=== PATIENT | female | born 1945 | race Hispanic/Latino ===

== ENCOUNTER 2018-09-04 07:47 | Day surgery (SDC) | payer MEDICARE ==
[2018-09-02 17:57] VITALS: BMI 29.0
[2018-09-04 08:28] LABS: BASO # 0.02 K/mm3 (0.0-2.0); BASO % 0.4 % (0.0-3.0); EOS # 0.1 (0.0-0.7); EOS % 1.9 % (1.5-5.0); LYMPH # 1.9 (1.2-3.4); LYMPH % 40.3 % (22.0-35.0); MEAN CELL VOLUME 86.5 fl (80.0-105.0); MEAN CORPUSCULAR HEMOGLOBIN 29.2 pg (25.0-35.0); MEAN CORPUSCULAR HGB CONC 33.7 g/dl (31.0-37.0); MONO # 0.4 (0.1-0.6); MONO % 7.5 % (1.0-6.0); RBC 4.8 10^6/uL (3.5-6.1); RED CELL DISTRIBUTION WIDTH 12.9 % (11.5-14.5); WHITE BLOOD COUNT 4.7 10^3/uL (4.5-11.0)
[2018-09-04 08:36] LABS: BLOOD UREA NITROGEN 13 mg/dL (7-21); CALCIUM 9.5 mg/dL (8.4-10.5); GFR NON-AFRICAN AMERICAN > 60; HDL CHOLESTEROL 41 mg/dL (29-60); INR 1.12; PARTIAL THROMBOPLASTIN TIME 40.7 Seconds (26.9-38.3); PROTHROMBIN TIME 12.7 SECONDS (9.4-12.5)
[2018-09-04 08:47] LABS: LDL CHOLESTEROL 117 mg/dL (0-129)
--- NOTE | 2018-09-04 09:44 | CARD ---
APPROVED REPORT Date of service: 09/04/2018 EKG Measurement Heart [id number] <Conclusion> Nonspecific ST-T abnormalities Borderline ECG
[2018-09-04] MEDS ORDERED: Iodixanol 320 MG/ML 200 ML BOTTLE IV ONE (11:44)
[2018-09-04] MEDS ORDERED: Lidocaine PF 2% (5 ml) Inj (For Cardiac Arrhy) ONE (11:44)
[2018-09-04] MEDS ORDERED: Iodixanol 320 MG/ML 100 ML BOTTLE IV ONE (11:44)
[2018-09-04] MEDS ORDERED: Iohexol 350mgl/ml 50 ML ONE (11:44)
[2018-09-04] MEDS ORDERED: Nitroglycerin 50mg in D5W 50 MG/250 ML BOTTLE IV ONE (11:44)
[2018-09-04] MEDS ORDERED: Verapamil 2 ML ONE (11:44)
[2018-09-04] MEDS ORDERED: Midazolam 2 MG/2 ML VIAL ONE ×2 (11:59→12:08)
[2018-09-04] MEDS ORDERED: Bacitracin 500 Units/gm Oint Foilpak UD TOP ONE (12:31)
[2018-09-04] MEDS ORDERED: Sodium Chloride 0.9% 1,000 ML IV SCH (12:45)
[2018-09-04 13:25] VITALS: RESP 18; TEMP 98; O2SAT 96
[2018-09-04 15:04] VITALS: BP 112/59; PULSE 78
[2018-09-04] MEDS ORDERED: Bacitracin 500 Units/gm Oint Foilpak UD ONE (16:24)
[2018-09-04] MEDS ORDERED: UBIDECARENONE 100 MG PO SCH ×2 (18:00)
[2018-09-04] MEDS ORDERED: KRILL OIL 500 MG PO SCH ×2 (18:00)
[2018-09-04] MEDS ORDERED: [UNRECOGNIZED DRUG - OTHER] PO SCH ×2 (18:00)
--- NOTE | 2018-09-05 07:46 | CARDCATH ---
PROCEDURE DATE: 09/04/2018 INDICATION: Trinity is a pleasant 73-year-old female with past medical history significant for hypertension, paroxysmal atrial fibrillation, status post ablation, status post procedure who underwent a left heart catheterization for abnormal nuclear stress test. Her cardiac history is significant for CABG done back in 2011. She was brought to collaborative physician for evaluation symptoms of atypical chest pain with abnormal nuclear stress test which showed ischemia and inferior wall . PROCEDURE PERFORMED: Left heart catheterization with selective left and right coronary angiogram via right radial artery to access selectively STEVENSON to LAD, selective vain graft right radial vain graft to diagonal OM branch, wristband for hemostasis, left ventriculogram. TECHNIQUES OF PROCEDURE: After obtaining informed consent, the patient was brought to the cardiac cath suite in post-absorptive and non-sedated state. The patient was prepped and draped in the usual sterile fashion. A 2% lidocaine was used for infiltration of anesthesia. Using modified Seldinger technique, 6-St Helenian sheath was introduced into the left distal radial artery. Subsequently over a J-wire and JR4 diagnostic catheters were used to engage the right coronary system. Angiograms were obtained in two orthogonal views. Subsequently, the JR4 catheter used to engage the vein graft to the right PDA and the vein graft to the diagonal OM sequential draft and subsequently pulled back to engage the STEVENSON to LAD. At this point, JL3.5 diagnostic catheters were used to engage the left main artery. Angiograms were obtained in different orthogonal views. After obtaining the coronary angiographic findings, pigtail catheter was advanced into the LV and LV gram was obtained and pulled back gradients were calculated pain. CORONARY ANATOMY: Left main large-sized vessel has ostial 95% stenosis. LAD is proximal to mid segment stenosis patent with slow flow phenomenon secondary to proximal LAD high-grade stenosis, left circumflex runs in the groove has a diffuse 80% to 90% stenosis that gives off obtuse marginal branch comparative for the noted in the OM1 and the mid to distal LAD, as well as the diagonal branch. RCA large-sized vessel has proximal high-grade 90% stenosis. Right PDA and PLV patent. Right PDA some competitive flow noted. Subsequently, selective vein gram angiography findings were vein graft to right PDA patent. Vain graft to diagonal vein graft is patent. STEVENSON to LAD widely patient. IMPRESSION: Patent bypass grafts, serial holy cross peripheral vascular disease. RECOMMENDATIONS: Continue aggressive management, risk factor modification. The patient can be discharged home in 4 to 5 hours and followup with Dr. Manuel in 2 weeks' time. Kris Manuel MD
[2018-09-05] MEDS ORDERED: CALCIUM CARBONATE PO SCH ×2 (10:00)
[2018-09-05] MEDS ORDERED: Non Formulary Medication (Magnesium Oxide [Magnesium] 400 MG) PO SCH (10:00)
[2018-09-05] MEDS ORDERED: BIOSIL PO SCH ×2 (10:00)
[2018-09-05] MEDS ORDERED: Metoprolol Succinate 100 mg XL Tab PO SCH (10:00)
[2018-09-05] MEDS ORDERED: BIOTIN 10000 MCG PO SCH ×2 (10:00)
[2018-09-05] MEDS ORDERED: Magnesium Oxide 400 mg Tab UD PO SCH (10:00)
[2018-09-05] MEDS ORDERED: VITAMIN D3 PO SCH ×2 (10:00)
[2018-09-05] MEDS ORDERED: [UNRECOGNIZED DRUG - OTHER] PO SCH ×2 (10:00)
[2018-09-05] MEDS ORDERED: [UNRECOGNIZED DRUG - OTHER] PO SCH ×2 (10:00)
[2018-09-06] MEDS ORDERED: Non Formulary Medication (Rosuvastatin Calcium [Crestor] 10 MG) PO SCH ×2 (10:00)
== END 2018-09-04 17:05 | disposition home or self-care (01) ==
LOC: CATH 07:47
PROVIDERS: ATTEND Internal Medicine Interventional Cardiology
DX: I25.10 Atherosclerotic heart disease of native coronary artery without angina pectoris (principal); I10 Essential (primary) hypertension; I48.0 Paroxysmal atrial fibrillation; I73.9 Peripheral vascular disease, unspecified; Z95.1 Presence of aortocoronary bypass graft
CPT/HCPCS: 36415; 80048; 80061; 83036; 85025; 85610; 85730; 86850; 86900; 93005; 93459; 99152; C1769; C1887 ×3; C1894; J1644 ×2; J2250; J3010; J7030; J7040; Q9966